=== PATIENT | female | born 1935 | race African-American/Black ===

== ENCOUNTER → 2017-11-15 | Outpatient (CLI) | payer MEDICARE ==
--- NOTE | 2017-11-17 13:31 | Diagnostic Imaging Report ---
EXAMINATION: MRI of the cervical spine without contrast HISTORY: Neck pain, bilateral hand numbness. COMPARISON: none. TECHNIQUE: Sagittal T1, T2, STIR; axial T2, gradient echo. FINDINGS: Curvature: Normal lordosis. Vertebrae: No evidence of neoplasm, infection, or fracture. Foramen magnum: No mass, Chiari malformation, or basilar invagination. Spinal Cord: Normal size and signal intensity. Soft Tissues: Partially visualized T2 hyperintense cystic lesion in the right lobe of the thyroid gland.. Degenerative changes: C1-C2: Mild degenerative changes left stenosis C2-C3: Mild bilateral facet hypertrophy and minimal disc bulge. No canal or foraminal stenoses C3-C4: Small disc osteophyte complex formation, bilateral uncovertebral and facet arthropathy. Mild canal and left foraminal narrowing. C4-C5: Disc osteophyte complex formation, bilateral uncovertebral and facet hypertrophy. Mild canal and left foraminal stenoses. Left-sided facet joint effusion, bone marrow edema and periarticular swelling, consistent with degenerative synovitis. C5-C6: Small disc osteophyte complex formation, bilateral uncovertebral hypertrophy. Mild left foraminal narrowing. C6-C7: Mild facet hypertrophy without canal or foraminal stenoses C7-T1: Unremarkable. IMPRESSION: 1. 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 2. Mild degenerative changes in the remaining levels without significant canal or foraminal stenosis. 3. 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 Signed by: Dr. Lulu Crews M.D. on 11/17/2017 1:27 PM
== END ==
LOC: MRI 10:35
PROVIDERS: ATTEND Internal Medicine
DX: M54.12 Radiculopathy, cervical region (principal)
CPT/HCPCS: 72141